=== PATIENT | female | born 1965 | race Caucasian/White ===

== ENCOUNTER → 2016-08-03 | Outpatient (CLI) | payer OTHER | LOC: FIMAGING 14:48 | DX: Z12.31 Encounter for screening mammogram for malignant neoplasm of breast (principal) | CPT/HCPCS: G0202 ==

== ENCOUNTER → 2017-12-07 | Outpatient (CLI) | payer OTHER | DX: R92.8 Other abnormal and inconclusive findings on diagnostic imaging of breast (principal) ==